=== PATIENT | female | born 1995 | race Two or more races ===

== ENCOUNTER 2022-11-08 08:17 | Outpatient (CLI) | payer OTHER | END 2022-11-08 11:48 | disposition home or self-care (01) | LOC: PRENATAL 08:17 | PROVIDERS: ATTEND Obstetrics & Gynecology Maternal & Fetal Medicine | DX: O26.849 Uterine size-date discrepancy, unspecified trimester (principal); O26.879 Cervical shortening, unspecified trimester; Z3A.22 22 weeks gestation of pregnancy ==

== ENCOUNTER 2022-12-06 10:39 | Outpatient (CLI) | payer OTHER | END 2022-12-06 11:51 | disposition home or self-care (01) | LOC: PRENATAL 10:39 | PROVIDERS: ATTEND Obstetrics & Gynecology Maternal & Fetal Medicine | DX: O26.849 Uterine size-date discrepancy, unspecified trimester (principal); O26.879 Cervical shortening, unspecified trimester; Z3A.26 26 weeks gestation of pregnancy ==

== ENCOUNTER 2023-01-17 13:03 | Outpatient (CLI) | payer OTHER | END 2023-01-17 13:05 | disposition home or self-care (01) | LOC: PRENATAL 13:03 | PROVIDERS: ATTEND Obstetrics & Gynecology Maternal & Fetal Medicine | DX: O26.849 Uterine size-date discrepancy, unspecified trimester (principal); O36.8199 Decreased fetal movements, unspecified trimester, other fetus; Z3A.32 32 weeks gestation of pregnancy ==

== ENCOUNTER 2025-02-07 07:00 | Day surgery (SDC) | payer OTHER ==
[2025-02-05 09:50] VITALS: BP 130/84
[2025-02-05 09:53] LABS: BASO % 0.3 % (0.1-1.2); EOS # 0.45 (0.04-0.54); EOS % 4.6 % (0.7-7.0); LYMPH # 2.03 (1.18-3.74); LYMPH % 20.8 % (19.3-53.1); MEAN PLATELET VOLUME 9.80 fl (9.4-12.4); MONO # 0.67 (0.24-0.82); MONO % 6.9 % (4.7-12.5); NEUT # 6.55 (1.56-6.13); NEUT % 67.0 % (34.0-71.1); RED CELL DISTRIBUTION WIDTH 11.4 % (11.6-14.4)
[2025-02-05 09:58] LABS: URINE APPEARANCE Clear; URINE BILIRRUBIN Negative (NEGATIVE); URINE BLOOD Large; URINE COLOR Yellow; URINE GLUCOSE Negative (NEGATIVE); URINE KETONE Negative (NEGATIVE); URINE LEUKOCYTE Trace; URINE NITRATE Negative; URINE PROTEIN Negative (NEGATIVE); URINE UROBILINOGEN 0.2 E.U./dl
[2025-02-05 10:02] LABS: URINE BACTERIA 350.3 uL (0.0-1933); URINE EPITHELIAL CELLS 47.5 uL (0.0-38.8); URINE RBC 136.1 uL (0.0-20.8); URINE WBC 8.6 uL (0.0-23.2)
[2025-02-05 10:03] LABS: URINE CAST 0.00 uL (0.0-1.40)
[2025-02-05 10:29] LABS: INR 0.96
[2025-02-05 10:30] LABS: BUN CREA RATIO 16.0 (7.0-25.0); CREATININE SERUM 0.5 mg/dL (0.55-1.02); GFR 146.91; GLUCOSE FASTING 84.0 mg/dL (65-100); OSMOLALITY SERUM 282.0 MOSM/KG (275-295)
[~2025-02-07] VITALS: Ht 152.4 cm; Wt 59.0 kg
[2025-02-07] MEDS ORDERED: CEFAZOLIN SODIUM 1,000 MG VIAL ONE (08:06)
[2025-02-07] MEDS ORDERED: LIDOCAINE HCL 1%/EPINEPHRINE 20ML VIAL IJ ONE (10:45)
[2025-02-07] MEDS ORDERED: AMOX-CLAV 875-1 EAC1 PO (11:12)
[2025-02-07] MEDS ORDERED: AYR SALINE50 ML NASAL (11:13)
== END 2025-02-07 12:40 | disposition home or self-care (01) ==
LOC: CIR.AMB 07:00
PROVIDERS: ATTEND Otolaryngology Otology & Neurotology
DX: J32.4 Chronic pansinusitis (principal); J34.2 Deviated nasal septum; J34.3 Hypertrophy of nasal turbinates